=== PATIENT | female | born 1980 | race Two or more races ===

== ENCOUNTER 2016-12-20 15:40 | Emergency (ER) | payer SELFPAY ==
[2016-12-20] MEDS ORDERED: ASPIRIN 81 MG TABLET, CHEWABLE PO ONE (16:54)
--- NOTE | 2016-12-20 16:59 | ER Document Report ---
ED Medical Screen (RME) - General Chief Complaint: Chest Pain Stated Complaint: CHEST PAIN Time Seen by Provider: 12/20/16 16:54 Mode of Arrival: Ambulatory Information source: Patient Notes: 36-year-old female presents to ED for left upper chest pain with her left arm feeling sleepy and weak. She states she is not in any pain right now but her pain lasted about 2 hours and was very sharp. She states she passed out while at [facility] for a few seconds but then it took her to 10 minutes before she can stand up and walk. States she nor her cousin at [facility] know that she had passed out and was not able to get up. She states she has been under a lot of stress lately and she thinks that is why she passed out. She denies any history of blood pressure cholesterol or any heart problems. Lungs are clear respirations regular and even EKG of acute noted. Patient is alert and oriented at this time. This patient is just told me that she is a diabetic on metformin and had not eaten any breakfast this morning after she was seen here she went to the [facility] and 8 and now her blood sugars in the 200s. I have greeted and performed a rapid initial assessment of this patient. A comprehensive ED assessment and evaluation of the patient, analysis of test results and completion of medical decision making process will be conducted by an additional ED providers. TRAVEL OUTSIDE OF THE [place] IN LAST 30 DAYS: No - Related Data Allergies/Adverse Reactions: No Known Allergies Allergy (Verified 12/20/16 16:01) Past Medical History Renal/ Medical History: Denies: Hx Peritoneal Dialysis Physical Exam - Vital signs Vitals: Temp Pulse Resp BP Pulse Ox 98.6 F 103 H 22 H 145/96 H 96 12/20/16 15:59 12/20/16 15:59 12/20/16 15:59 12/20/16 15:59 12/20/16 15:59 Course - Vital Signs Vital signs: Temp Pulse Resp BP Pulse Ox 98.6 F 103 H 22 H 145/96 H 96 12/20/16 15:59 12/20/16 15:59 12/20/16 15:59 12/20/16 15:59 12/20/16 15:59
[2016-12-20 17:20] LABS: ABSOLUTE BASOPHILS # (AUTO) 0.1 10^3/uL (0.0-0.2); ABSOLUTE LYMPHOCYTES (AUTO) 2.9 10^3/uL (0.5-4.7); ABSOLUTE MONOCYTES (AUTO) 0.6 10^3/uL (0.1-1.4); ABSOLUTE NEUT (AUTO) 7.1 10^3/uL (1.7-8.2); BASOPHILS % (AUTO) 0.6 % (0-2); EOSINOPHILS % (AUTO) 0.2 % (0-6); HEMATOCRIT 36.4 % (36.0-47.0); HEMOGLOBIN 12.1 g/dL (12.0-15.5); HGB HCT DIFFERENCE -0.1; LYMPHOCYTES % (AUTO) 27.1 % (13-45); MEAN CORPUSCULAR HEMOGLOBIN 26.7 pg (27.0-33.4); MEAN CORPUSCULAR HGB CONC 33.3 g/dL (32.0-36.0); MEAN CORPUSCULAR VOLUME 80 fl (80-97); MONOCYTES % (AUTO) 5.5 % (3-13); RED BLOOD COUNT 4.54 10^6/uL (3.72-5.28); RED CELL DISTRIBUTION WIDTH 13.8 % (11.5-14.0); SEGMENTED NEUTROPHILS % (AUTO) 66.6 % (42-78); WHITE BLOOD COUNT 10.6 10^3/uL (4.0-10.5)
[2016-12-20 17:38] LABS: ALANINE AMINOTRANSFERASE 42 U/L (9-52); ALBUMIN 4.4 g/dL (3.5-5.0); ALKALINE PHOSPHATASE 97 U/L (38-126); ANION GAP 13 (5-19); ASPARTATE AMINO TRANSFERASE 25 U/L (14-36); BILIRUBIN,DIRECT 0.3 mg/dL (0.0-0.4); BILIRUBIN,TOTAL 0.5 mg/dL (0.2-1.3); BLOOD UREA NITROGEN 12 mg/dL (7-20); CALCIUM 9.9 mg/dL (8.4-10.2); CARBON DIOXIDE 24 mmol/L (22-30); CHLORIDE 101 mmol/L (98-107); CREATINE KINASE 68 U/L (30-135); CREATININE RESULT 0.61 mg/dL (0.52-1.25); GLUCOSE 237 mg/dL (75-110); MAGNESIUM 1.9 mg/dL (1.6-2.3); POTASSIUM 4.6 mmol/L (3.6-5.0); SODIUM 137.8 mmol/L (137-145); TOTAL PROTEIN 7.9 g/dL (6.3-8.2)
--- NOTE | 2016-12-20 17:39 | RADIOLOGY REPORT (SQ) ---
EXAM DESCRIPTION: CHEST PA/LAT COMPLETED DATE/TIME: 12/20/2016 5:15 pm REASON FOR STUDY: chest pain COMPARISON: None. EXAM PARAMETERS: NUMBER OF VIEWS: two views TECHNIQUE: Digital Frontal and Lateral radiographic views of the chest acquired. RADIATION DOSE: NA LIMITATIONS: none FINDINGS: LUNGS AND PLEURA: No opacities, masses or pneumothorax. No pleural effusion. MEDIASTINUM AND HILAR STRUCTURES: No masses or contour abnormalities. HEART AND VASCULAR STRUCTURES: Heart normal size. No evidence for failure. BONES: No acute findings. HARDWARE: None in the chest. OTHER: No other significant finding. IMPRESSION: NO SIGNIFICANT RADIOGRAPHIC FINDING IN THE CHEST. TECHNICAL DOCUMENTATION: JOB ID: [id number] [employer]- All Rights Reserved
[2016-12-20 17:50] LABS: CREATINE KINASE MB < 0.22 ng/mL (<4.55); TROPONIN I < 0.012 ng/mL
--- NOTE | 2016-12-20 19:47 | ER Document Report ---
ED Cardiac - General Chief Complaint: Chest Pain Stated Complaint: CHEST PAIN Time Seen by Provider: 12/20/16 16:54 Mode of Arrival: Ambulatory Information source: Patient Notes: Patient states that she was shopping around 1 PM today and developed left-sided chest pain, left arm weakness while having emotional distress. Patient states that she just found out that her spouse was cheating on her. Patient states she went to her vehicle sat down and had a syncopal episode briefly after she became more emotionally distraught. Patient states that she did not eat breakfast or lunch prior to her syncopal episode. Patient denies any nausea, vomiting, cough or cold symptoms. Patient denies any history of DVT or PE. Patient denies any recent bedrest, immobilization, travel. Patient states that her symptoms lasted for about 2 hours and then resolved. Patient currently denies any complaints. Patient states that she feels like her symptoms are likely related to her being upset over her spouse cheating on her. TRAVEL OUTSIDE OF THE [place] IN LAST 30 DAYS: No - HPI Patient complains to provider of: Chest pain Was the onset of pain: Sudden Quality of pain: Pressure Chest pain radiation location: Left arm - Left arm weakness Pain level currently: Denies Cardiac risk factors: Diabetes, Hypertension, Dyslipidemia Associated symptoms: Anxiety. denies: Abdominal pain, Back pain, Headache, Nausea/vomiting, Neck pain Exacerbated by: Denies Relieved by: Nothing Similar symptoms previously: No Recently seen / treated by doctor: No - Related Data Allergies/Adverse Reactions: No Known Allergies Allergy (Verified 12/20/16 16:01) Past Medical History - General Information source: Patient - Social History Smoking Status: Never Smoker Chew tobacco use (# tins/day): No Frequency of alcohol use: None Drug Abuse: None Occupation: none Lives with: Family Family History: CAD - Past Medical History Cardiac Medical History: Reports: Hx Hypercholesterolemia, Hx Hypertension Endocrine Medical History: Reports: Hx Diabetes Mellitus Type 2 Renal/ Medical History: Denies: Hx Peritoneal Dialysis Surgical Hx: Negative Review of Systems - Review of Systems Constitutional: No symptoms reported. denies: Fever, Recent illness EENT: No symptoms reported Cardiovascular: Chest pain, Syncope Respiratory: No symptoms reported. denies: Cough, Short of breath Gastrointestinal: No symptoms reported. denies: Abdominal pain, Nausea, Vomiting Genitourinary: No symptoms reported Female Genitourinary: No symptoms reported Musculoskeletal: No symptoms reported Skin: No symptoms reported Hematologic/Lymphatic: No symptoms reported Neurological/Psychological: No symptoms reported Physical Exam - Vital signs Vitals: Temp Pulse Resp BP Pulse Ox 98.6 F 103 H 22 H 145/96 H 96 12/20/16 15:59 12/20/16 15:59 12/20/16 15:59 12/20/16 15:59 12/20/16 15:59 - General General appearance: Appears well, Alert In distress: None - HEENT Head: Normocephalic, Atraumatic Eyes: Normal Conjunctiva: Normal Nasal: Normal Mouth/Lips: Normal Mucous membranes: Normal Neck: Normal, Supple. No: Lymphadenopathy - Respiratory Respiratory status: No respiratory distress Chest status: Nontender Breath sounds: Normal. No: Rales, Rhonchi, Stridor, Wheezing Chest palpation: Normal - Cardiovascular Rhythm: Regular Heart sounds: S1 appreciated, S2 appreciated Murmur: No - Abdominal Inspection: Normal Distension: No distension Tenderness: Nontender Organomegaly: No organomegaly - Back Back: Normal, Nontender. No: CVA tenderness - Extremities General upper extremity: Normal inspection, Normal ROM General lower extremity: Normal inspection, Normal ROM - Neurological Neuro grossly intact: Yes Cognition: Normal Selin Coma Scale Eye Opening: Spontaneous Selin Coma Scale Verbal: Oriented Colwell Coma Scale Motor: Obeys Commands Selin Coma Scale Total: 15 - Psychological Associated symptoms: Normal affect, Normal mood - Skin Skin Temperature: Warm Skin Moisture: Dry Skin Color: Normal Course - Re-evaluation Re-evalutation: 12/20/16 20:51 Patient denies any chest pain or dyspnea at this time. Patient states she is feeling much better and states that she feels that her symptoms are likely related to stress due to recently finding out that her spouse cheated on her. Consulted with Dr. Mckeon, reviewed patient's diagnostic test results, history, exam findings, and EKG. does not recommend any additional diagnostic tests at this time, agrees with discharge plan of care. The patient has atypical chest pain as the patient's chest pain is not suggestive of pulmonary embolus, cardiac ischemia, aortic dissection, or other serious etiology. Given the extremely low risk of these diagnoses for the test in evaluation for these possibilities does not appear to be indicated at this time. Patient has been instructed to return if the symptoms worsen or change in any way. Heart score 3. - Vital Signs Vital signs: Temp Pulse Resp BP Pulse Ox 97.9 F 87 18 142/85 H 97 12/20/16 21:05 12/20/16 21:05 12/20/16 21:05 12/20/16 21:05 12/20/16 21:05 - Laboratory Result Diagrams: 12/20/16 17:05 12/20/16 17:05 Laboratory results interpreted by me: 12/20/16 12/20/16 12/20/16 16:55 17:05 17:05 WBC 10.6 H MCH 26.7 L Glucose 237 H POC Glucose 238 H 12/20/16 20:49 Labs- Entire Visit 12/20/16 12/20/16 12/20/16 16:55 17:05 17:05 WBC 10.6 H RBC 4.54 Hgb 12.1 Hct 36.4 MCV 80 MCH 26.7 L MCHC 33.3 RDW 13.8 Plt Count 299 Seg Neutrophils % 66.6 Lymphocytes % 27.1 Monocytes % 5.5 Eosinophils % 0.2 Basophils % 0.6 Absolute Neutrophils 7.1 Absolute Lymphocytes 2.9 Absolute Monocytes 0.6 Absolute Eosinophils 0.0 Absolute Basophils 0.1 D-Dimer Sodium 137.8 Potassium 4.6 Chloride 101 Carbon Dioxide 24 Anion Gap 13 BUN 12 Creatinine 0.61 Est GFR ( Amer) > 60 Est GFR (Non-Af Amer) > 60 Glucose 237 H POC Glucose 238 H Calcium 9.9 Magnesium 1.9 Total Bilirubin 0.5 Direct Bilirubin 0.3 Indirect Bilirubin Not Reportable Neonat Total Bilirubin Not Reportable AST 25 ALT 42 Alkaline Phosphatase 97 Creatine Kinase 68 CK-MB (CK-2) Troponin I Total Protein 7.9 Albumin 4.4 12/20/16 12/20/16 17:05 17:05 WBC RBC Hgb Hct MCV MCH MCHC RDW Plt Count Seg Neutrophils % Lymphocytes % Monocytes % Eosinophils % Basophils % Absolute Neutrophils Absolute Lymphocytes Absolute Monocytes Absolute Eosinophils Absolute Basophils D-Dimer < 0.27 Sodium Potassium Chloride Carbon Dioxide Anion Gap BUN Creatinine Est GFR ( Amer) Est GFR (Non-Af Amer) Glucose POC Glucose Calcium Magnesium Total Bilirubin Direct Bilirubin Indirect Bilirubin Neonat Total Bilirubin AST ALT Alkaline Phosphatase Creatine Kinase CK-MB (CK-2) < 0.22 Troponin I < 0.012 Total Protein Albumin - Diagnostic Test Radiology reviewed: Reports reviewed Discharge - Discharge Clinical Impression: Hx of essential hypertension, Stress at home Chest pain Qualifiers: Chest pain type: unspecified Qualified Code(s): R07.9 - Chest pain, unspecified Condition: Stable Disposition: HOME, SELF-CARE Instructions: Chest Pain of Unclear Cause ([facility]) Additional Instructions: Return immediately for any new or worsening symptoms Followup with your primary care provider, call tomorrow to make a followup appointment You were seen today for chest pain. The exact cause of your pain is unclear. However, based on your cardiac enzyme testing, chest x-ray, and EKG it does not appear that it is from an immediately life-threatening cause at this time. Although your testing here is normal is critical that you follow-up with your primary care physician for continued evaluation of this chest pain and possible stress testing. I recommended you see your physician within the next 24-48 hours to be evaluated for consideration of a stress test. Please return to emergency department immediately if you have worsening of your chest pain, shortness of breath, vomiting, become unable to exert yourself due to pain or difficulty breathing, you pass out, or have any pain that radiates into your arms, jaw, or back. Please also return if you have any additional symptoms that are concerning to you. Referrals: [facility] [Provider Group] - Follow up tomorrow
--- NOTE | 2016-12-20 20:40 | EKG REPORT ---
SEVERITY:- BORDERLINE ECG - SINUS TACHYCARDIA BORDERLINE ST-T ABNORMALITIES, INFERIOR LEADS AND LATERAL LEADS : Confirmed by: Jorge Jones 20-Dec-2016 20:39:59
[2016-12-20 21:11] VITALS: BP 142/85
== END 2016-12-20 21:05 | disposition home or self-care (01) ==
LOC: ER 15:40
DX: R07.9 Chest pain, unspecified (principal); F43.9 Reaction to severe stress, unspecified; I10 Essential (primary) hypertension; R53.1 Weakness; R55 Syncope and collapse
CPT/HCPCS: 36415; 71020; 80053; 82550; 82553; 82962; 83735; 84484; 85025; 85379; 93005; 93010; 99285

== ENCOUNTER 2017-10-14 00:16 | Emergency (ER) | payer SELFPAY ==
--- NOTE | 2017-10-14 01:00 | ER Document Report ---
ED GI/ - General Chief Complaint: Vaginal Pain Stated Complaint: VAGINAL PAIN Time Seen by Provider: 10/14/17 00:44 Mode of Arrival: Ambulatory Information source: Patient Notes: Patient is a 36-year-old female who presents with chief complaint of itching and burning to her vaginal area is been going on for approximately 4 days. Patient reports the pain increases after she urinates. Patient states she has a chunky white discharge. Patient reports that she feels her partner has been unfaithful and she is concerned for STDs. Patient denies any fever, back pain or CVA tenderness. TRAVEL OUTSIDE OF THE [place] IN LAST 30 DAYS: No - Related Data Allergies/Adverse Reactions: No Known Allergies Allergy (Verified 12/20/16 16:01) Past Medical History - General Information source: Patient - Social History Smoking Status: Never Smoker Frequency of alcohol use: None Drug Abuse: None Lives with: Spouse/Significant other Family History: CAD - Past Medical History Cardiac Medical History: Reports: Hx Hypercholesterolemia, Hx Hypertension Endocrine Medical History: Reports: Hx Diabetes Mellitus Type 2 Renal/ Medical History: Denies: Hx Peritoneal Dialysis Review of Systems - Review of Systems Constitutional: No symptoms reported EENT: No symptoms reported Cardiovascular: No symptoms reported Respiratory: No symptoms reported Gastrointestinal: No symptoms reported Genitourinary: No symptoms reported Female Genitourinary: See HPI Musculoskeletal: No symptoms reported Skin: No symptoms reported Hematologic/Lymphatic: No symptoms reported Neurological/Psychological: No symptoms reported Physical Exam - Vital signs Vitals: Temp Pulse Resp BP Pulse Ox 98 F 82 18 152/94 H 99 10/14/17 00:25 10/14/17 00:25 10/14/17 00:25 10/14/17 00:25 10/14/17 00:25 - Notes Notes: PHYSICAL EXAMINATION: GENERAL: Well-appearing, well-nourished and in no acute distress. HEAD: Atraumatic, normocephalic. EYES: Pupils equal round and reactive to light, extraocular movements intact, conjunctiva are normal. ENT: Nares patent, oropharynx clear without exudates. Moist mucous membranes. NECK: Normal range of motion, supple without lymphadenopathy LUNGS: Breath sounds clear to auscultation bilaterally and equal. No wheezes rales or rhonchi. HEART: Regular rate and rhythm without murmurs ABDOMEN: Soft, nontender, nondistended abdomen. No guarding, no rebound. No masses appreciated. Female : deferred Musculoskeletal: Normal range of motion, no pitting or edema. No cyanosis. NEUROLOGICAL: Cranial nerves grossly intact. Normal speech, normal gait. Normal sensory, motor exams PSYCH: Normal mood, normal affect. SKIN: Warm, Dry, normal turgor, no rashes or lesions noted. Course - Re-evaluation Re-evalutation: Patient is an otherwise healthy 36-year-old female who presents with possible vaginal infection. Patient reports that she is concerned her may be unfaithful and she may have STDs. Urinalysis done and reveals small blood, large leukocytes but no nitrates. Wet mount with 3+ bacteria and yeast. Patient does not want to stay to wait for results of GC chlamydia, patient would like to be treated now. Patient will be treated prophylactically for STD and be placed on Flagyl for bacterial vaginosis as well as be treated for her urinary tract infection. - Vital Signs Vital signs: Temp Pulse Resp BP Pulse Ox 100.3 F 89 18 127/92 H 99 10/14/17 03:08 10/14/17 03:08 10/14/17 03:08 10/14/17 03:08 10/14/17 03:08 - Laboratory Laboratory results interpreted by me: 10/14/17 00:44 Urine Glucose (UA) >=500 H Urine Blood SMALL H Ur Leukocyte Esterase LARGE H Discharge - Discharge Clinical Impression: Vaginal infection Condition: Stable Disposition: HOME, SELF-CARE Additional Instructions: Vaginosis, Bacterial Your exam shows you have bacterial vaginosis. This condition is due to an overgrowth of bacteria in the vagina. Symptoms may include vaginal itching or pain, a smelly discharge, and sometimes burning with urination. Normally this is not transmitted by sexual contact. Vaginosis can be treated with oral or topical antibiotics. Metronidazole ( Flagyl) pills are usually effective. Topical vaginal creams include Cleocin and Metro-Gel. You should avoid sexual contact until your symptoms are all better. Call the doctor if you develop pelvic pain, fever, or problems with urination, or if you don't improve as expected. URINARY TRACT INFECTION: Your evaluation indicates that you have a urinary tract infection. This is due to germs growing in the bladder. This is a common problem. This infection usually responds quickly to antibiotics. Your antibiotic should be taken exactly as prescribed. Drink plenty of fluids -- three to four quarts a day. Occasionally, a bladder anesthetic will be prescribed to help stop the feeling of urgency until the antibiotic has a chance to clear the infection. This may cause your urine to be dark orange. Certain urine infections require a culture. If the doctor obtained a culture, the results will be back in two days. You should call to see if a change in treatment is needed. A repeat urinalysis after you finish treatment is often recommended. The physician will let you know if further testing is required. Call the doctor if you develop fever, chills, flank pain, inability to urinate, or blood in the urine. TRIMETHOPRIM-SULFA: You have been given a prescription for trimethoprim-sulfa (TMS, Septra, Bactrim). This is a combination antibiotic of the sulfa class, often used for urinary tract infections, middle ear infections, bronchitis, shigella intestinal infection, and Pneumocystis pneumonia. TMS is usually well-tolerated. Occasional side effects include nausea and decreased appetite. Septra is not recommended for infants less than two months of age. Do not take this medication if you have experienced severe side effects or allergy to sulfa medicine. You should stop this medicine at once and contact your physician if you develop any rash, joint pain, shortness of breath, bruising, or jaundice ( yellow color in the skin), or if you develop any other new or unusual symptoms. FOLLOW-UP CARE: If you have been referred to a physician for follow-up care, call the physician s office for an appointment as you were instructed or within the next two days. If you experience worsening or a significant change in your symptoms, notify the physician immediately or return to the Emergency Department at any time for re-evaluation. Prescriptions: Metronidazole [Flagyl 500 mg Tablet] 500 mg PO Q6H #28 tablet Sulfamethoxazole/Trimethoprim [Bactrim Ds Tablet] 1 tab PO BID #6 tablet
[2017-10-14 01:53] LABS: APPEARANCE,URINE CLOUDY; BILIRUBIN,URINE NEGATIVE (NEGATIVE); COLOR,URINE YELLOW; GLUCOSE, URINE >=500 mg/dL (NEGATIVE); KETONES,URINE NEGATIVE (NEGATIVE); LEUKOCYTE ESTERASE,URINE LARGE (NEGATIVE); NITRITE,URINE NEGATIVE (NEGATIVE); PROTEIN,URINE NEGATIVE (NEGATIVE); URINE SPECIFIC GRAVITY 1.028; UROBILINOGEN,URINE NEGATIVE mg/dL (<2.0)
[2017-10-14 02:07] LABS: BACTERIA (WET MOUNT) 3+ BACTERIA SEEN; EPITHELIALS (WET MOUNT) 3+ EPITHELIALS SEEN; RBCS (WET MOUNT) RARE RBCS SEEN; T.VAGINALIS (WET MOUNT) NO TRICHOMONAS SEEN; WBCS (WET MOUNT) FEW WBCS SEEN; YEAST (WET MOUNT) YEAST SEEN
[2017-10-14] MEDS ORDERED: LIDOCAINE 1% INJ-PF (10 MG/ML) 30 ML SDV INFIL ONE (02:09)
[2017-10-14] MEDS ORDERED: FLUCONAZOLE 100 MG TABLET PO ONE (02:09)
[2017-10-14] MEDS ORDERED: METRONIDAZOLE 500 MG TABLET PO ONE (02:09)
[2017-10-14] MEDS ORDERED: CEFTRIAXONE INJ 250 MG VIAL IM ONE (02:10)
[2017-10-14] MEDS ORDERED: AZITHROMYCIN 1 GM SUSP PACKET PO ONE (02:11)
[2017-10-14 03:06] LABS: CHLAM PCR NOT DETECTED (NOT DETECT); GON PCR NOT DETECTED (NOT DETECT)
[2017-10-14 03:12] VITALS: BP 127/92
== END 2017-10-14 03:08 | disposition home or self-care (01) ==
LOC: ER 00:16
DX: N76.0 Acute vaginitis (principal); B96.89 Other specified bacterial agents as the cause of diseases classified elsewhere; N39.0 Urinary tract infection, site not specified; I10 Essential (primary) hypertension; E11.9 Type 2 diabetes mellitus without complications; Z20.2 Contact with and (suspected) exposure to infections with a predominantly sexual mode of transmission
CPT/HCPCS: 99283; 96372; 87210; 81025; 81001; 87491; 87591; J3490; Q0144; J0696

== ENCOUNTER 2018-01-14 23:15 | Emergency (ER) | payer SELFPAY ==
--- NOTE | 2018-01-15 00:07 | ER Document Report ---
HPI - HPI Pain Level: 4 Context: Patient is a 37-year-old female that comes to the emergency department for chief complaint of possible infection of her left foot. She states that 1 week ago she had an area that looked like a blister on her foot over the dorsal aspect on the lateral side underneath her fourth and fifth digits, she states that she was seen by her primary care provider and sent to [facility], she states they saw her and placed her on Bactrim, she states that the area still has not resolved so she came in to be checked again. She is a diabetic on metformin and glimepiride. She denies fever or chills, nausea or vomiting, she denies spreading of the area but states that over the past 3 days she has noticed more pain over the area. She is unsure if she has a foreign body in her foot. Tetanus is up-to-date within 5 years. Past Medical History - General Information source: Patient - Social History Smoking Status: Never Smoker Frequency of alcohol use: None Drug Abuse: None Lives with: Family Family History: CAD - Past Medical History Cardiac Medical History: Reports: Hx Hypercholesterolemia, Hx Hypertension Endocrine Medical History: Reports: Hx Diabetes Mellitus Type 2 Renal/ Medical History: Denies: Hx Peritoneal Dialysis Surgical Hx: Negative - Immunizations Immunizations up to date: Yes Hx Diphtheria, Pertussis, Tetanus Vaccination: Yes Vertical Provider Document - CONSTITUTIONAL General Appearance: WD/WN, No Apparent Distress - INFECTION CONTROL TRAVEL OUTSIDE OF THE [place] IN LAST 30 DAYS: No - HEENT HEENT: Atraumatic, Normocephalic - NECK Neck: Normal Inspection - RESPIRATORY Respiratory: Breath Sounds Normal, No Respiratory Distress - CARDIOVASCULAR Cardiovascular: Regular Rate, Regular Rhythm - GI/ABDOMEN Gastrointestinal: Abdomen Soft, Abdomen Non-Tender - BACK Back: Normal Inspection - MUSCULOSKELETAL/EXTREMETIES Musculoskeletal/Extremeties: MAEW, FROM, Tender - Over the dorsum of the left foot underneath the MCPs of the fourth and fifth digits there is an area of what appears to be originally a blister that is healing, there is some mild surrounding erythema and minimal tenderness. No noted surrounding soft tissue swelling, patient bears weight on the area without any difficulty, normal distal neurovascular exam, normal lower extremity exam otherwise. - NEURO Level of Consciousness: Awake, Alert, Appropriate - DERM Integumentary: Warm, Dry, No Rash Course - Re-evaluation Re-evalutation: There is a very small area of healing blister and possible mild cellulitis with minimal tenderness and no significant surrounding swelling. X-ray was performed that does not show foreign body, gas, or bony abnormality. Patient is already on Bactrim, adding Keflex, traced the small area with a medical pen, advised her to be re-seen if the area spreads, if the area becomes more tender, if there is swelling, if she develops fever, or any other concerning symptoms. Patient is very agreeable with this plan, states understanding and agreement. - Vital Signs Vital signs: Temp Pulse Resp BP Pulse Ox 98.7 F 76 24 H 129/86 H 98 01/14/18 23:23 01/14/18 23:23 01/14/18 23:23 01/14/18 23:23 01/14/18 23:23 Discharge - Discharge Clinical Impression: Left foot pain Cellulitis Qualifiers: Site of cellulitis: extremity Site of cellulitis of extremity: lower extremity Laterality: left Qualified Code(s): L03.116 - Cellulitis of left lower limb Condition: Stable Disposition: HOME, SELF-CARE Additional Instructions: Your examination is consistent with a blister that has become infected with some small area of cellulitis around it. Take your antibiotic as prescribed, take the new prescribed antibiotic along with it, elevate your foot as much as possible for the next few days. Follow-up with your primary care provider. Return if this worsens including spreading redness, swelling, increased pain, fever of 100.4 or greater, or any other concerning or worsening symptoms. Prescriptions: Cephalexin Monohydrate [Keflex 500 mg Capsule] 500 mg PO QID #28 capsule
[2018-01-15] MEDS ORDERED: CEPHALEXIN 500 MG CAPSULE PO ONE (01:25)
--- NOTE | 2018-01-15 01:25 | RADIOLOGY REPORT (SQ) ---
EXAM DESCRIPTION: XR FOOT 3 OR MORE VIEWS COMPLETED DATE/TME: 01/15/2018 00:05 CLINICAL HISTORY: 37 years, Female, swelling/pain of foot; possible FB/infection COMPARISON: None. FINDINGS: 3 views of the left foot. No acute fracture or dislocation. Normal osseous mineralization. No radiopaque foreign bodies. Plantar surface soft tissue edema. IMPRESSION: 1. No acute fracture or dislocation. No radiopaque foreign body identified. 2010 [employer]- All Rights Reserved
[2018-01-15 01:38] VITALS: BP 127/97
== END 2018-01-15 01:38 | disposition home or self-care (01) ==
LOC: ER 23:15
DX: L03.116 Cellulitis of left lower limb (principal); M79.672 Pain in left foot; E11.9 Type 2 diabetes mellitus without complications; Z79.84 Long term (current) use of oral hypoglycemic drugs; I10 Essential (primary) hypertension
CPT/HCPCS: 99283

== ENCOUNTER 2018-01-16 00:03 | Emergency (ER) | payer SELFPAY ==
[2018-01-16] MEDS ORDERED: LIDOCAINE 2% VISCOUS SOLN 20 ML UDCUP PO ONE (00:39)
[2018-01-16] MEDS ORDERED: FAMOTIDINE 20 MG TABLET PO ONE (00:39)
[2018-01-16] MEDS ORDERED: MAG HYDROX/AL HYDROX/SIMETH SUSP 30 ML UDCUP PO ONE (00:39)
[2018-01-16] MEDS ORDERED: METOCLOPRAMIDE HCL ORAL SOLN 10 MG/10 ML UDCUP PO ONE (00:39)
[2018-01-16 01:00] LABS: HEMATOCRIT 38.7 % (36.0-47.0); HEMOGLOBIN 13.3 g/dL (12.0-15.5); MEAN CORPUSCULAR HEMOGLOBIN 27.1 pg (27.0-33.4); MEAN CORPUSCULAR HGB CONC 34.4 g/dL (32.0-36.0); MEAN CORPUSCULAR VOLUME 79 fl (80-97); PLATELET COUNT 349 10^3/uL (150-450); RED BLOOD COUNT 4.91 10^6/uL (3.72-5.28); RED CELL DISTRIBUTION WIDTH 14.7 % (11.5-14.0); WHITE BLOOD COUNT 15.7 10^3/uL (4.0-10.5)
--- NOTE | 2018-01-16 01:17 | RADIOLOGY REPORT (SQ) ---
EXAM DESCRIPTION: XR CHEST 1 VIEW COMPLETED DATE/TME: 01/16/2018 00:38 CLINICAL HISTORY: cp COMPARISON: 12/20/2016 FINDINGS: Single frontal view of the chest. Leads overlie the chest. The cardiomediastinal silhouette has normal size and contour. No consolidation, pneumothorax, or pleural effusion. No displaced rib fractures identified. Upper abdominal soft tissues are unremarkable. IMPRESSION: 1. No acute pulmonary process identified.
[2018-01-16 01:19] LABS: ALANINE AMINOTRANSFERASE 29 U/L (9-52); ALBUMIN 4.4 g/dL (3.5-5.0); ALKALINE PHOSPHATASE 77 U/L (38-126); ANION GAP 10 (5-19); ASPARTATE AMINO TRANSFERASE 20 U/L (14-36); BILIRUBIN,DIRECT 0.5 mg/dL (0.0-0.4); BILIRUBIN,TOTAL 0.9 mg/dL (0.2-1.3); BLOOD UREA NITROGEN 18 mg/dL (7-20); CARBON DIOXIDE 26 mmol/L (22-30); CHLORIDE 98 mmol/L (98-107); GLUCOSE 254 mg/dL (75-110); LIPASE 69.8 U/L (23-300); POTASSIUM 4.7 mmol/L (3.6-5.0); SODIUM 133.7 mmol/L (137-145)
--- NOTE | 2018-01-16 02:25 | ER Document Report ---
ED General - General Chief Complaint: Chest Pain Stated Complaint: VOMITING Time Seen by Provider: 01/16/18 00:38 Notes: Patient is a 37-year-old female without chronic medical problems who presents with several hours of burning in her chest, epigastric abdominal discomfort, nausea and vomiting. Patient states that the symptoms started after taking antibiotics today for an infection on her foot. She describes the pain to the affected areas as being a burning, aching, constant pain. Denies a history of similar symptoms in the past. She has not trying to improve her symptoms. She has not seen her general doctor regarding today's concerns. She denies any associated shortness of breath or pleuritic pain. No history of DVT or pulmonary embolus. No use of supplemental estrogen. No cardiac history. TRAVEL OUTSIDE OF THE [place] IN LAST 30 DAYS: No - Related Data Allergies/Adverse Reactions: No Known Allergies Allergy (Verified 12/20/16 16:01) Past Medical History - General Information source: Patient - Social History Smoking Status: Never Smoker Chew tobacco use (# tins/day): No Frequency of alcohol use: None Drug Abuse: None Lives with: Spouse/Significant other Family History: CAD Patient has suicidal ideation: No Patient has homicidal ideation: No - Past Medical History Cardiac Medical History: Reports: Hx Hypercholesterolemia, Hx Hypertension Endocrine Medical History: Reports: Hx Diabetes Mellitus Type 2 Renal/ Medical History: Denies: Hx Peritoneal Dialysis - Immunizations Immunizations up to date: Yes Hx Diphtheria, Pertussis, Tetanus Vaccination: Yes Review of Systems - Review of Systems Notes: Constitutional: Negative for fever. HENT: Negative for sore throat. Eyes: Negative for visual changes. Cardiovascular: Positive for chest discomfort Respiratory: Negative for shortness of breath. Gastrointestinal: Positive for abdominal pain and vomiting Genitourinary: Negative for dysuria. Musculoskeletal: Negative for back pain. Skin: Negative for rash. Neurological: Negative for headaches, weakness or numbness. 10 point ROS negative except as marked above and in HPI. Physical Exam - Vital signs Vitals: Temp Pulse Resp BP Pulse Ox 98.1 F 79 18 116/72 97 01/16/18 00:18 01/16/18 00:18 10 00:18 01/16/18 00:18 01/16/18 00:18 Interpretation: Normal Notes: PHYSICAL EXAMINATION: GENERAL: Well-appearing, well-nourished and in no acute distress. HEAD: Atraumatic, normocephalic. EYES: Pupils equal round and reactive to light, extraocular movements intact, sclera anicteric, conjunctiva are normal. ENT: nares patent, oropharynx clear without exudates. Moist mucous membranes. NECK: Normal range of motion, supple without lymphadenopathy LUNGS: Breath sounds clear to auscultation bilaterally and equal. No wheezes rales or rhonchi. HEART: Regular rate and rhythm without murmurs ABDOMEN: Soft, nontender, normoactive bowel sounds. No guarding, no rebound. No masses appreciated. EXTREMITIES: Normal range of motion, no pitting or edema. No cyanosis. NEUROLOGICAL: No focal neurological deficits. Moves all extremities spontaneously and on command. PSYCH: Normal mood, normal affect. SKIN: Warm, Dry, normal turgor, no rashes or lesions noted. Course - Re-evaluation Re-evalutation: 01/16/18 02:23 Patient presents with epigastric abdominal pain with associated reflux symptoms most consistent with likely gastritis. Patient did describe chest burning which has all since resolved. Symptoms did start after she began on cephalexin. Patient has no focal abdominal tenderness on examination. Lipase is normal. No LFT changes. Based on history and exam, I do not suspect ACS, pulmonary embolus, SBO, mesenteric ischemia, acute pancreatitis, biliary pathology, or an abdominal aortic dissection. Patient has had improvement of symptoms here with a GI cocktail. At this time will discharge with return precautions and follow-up recommendations. Verbal discharge instructions given a the bedside and opportunity for questions given. Medication warnings reviewed. Patient is in agreement with this plan and has verbalized understanding of return precautions and the need for primary care follow-up in the next 24-72 hours. - Vital Signs Vital signs: Temp Pulse Resp BP Pulse Ox 98.1 F 79 17 125/75 99 01/16/18 00:18 01/16/18 00:18 01/16/18 01:01 01/16/18 01:01 01/16/18 01:01 - Laboratory Result Diagrams: 01/16/18 00:50 01/16/18 00:50 Laboratory results interpreted by me: 01/16/18 01/16/18 00:50 00:50 WBC 15.7 H MCV 79 L RDW 14.7 H Sodium 133.7 L Glucose 254 H Direct Bilirubin 0.5 H - Diagnostic Test Radiology reviewed: Image reviewed, Reports reviewed Radiology results interpreted by me: 01/16/18 02:23 Chest x-ray: No acute infiltrate or pneumothorax - EKG Interpretation by Me Additional EKG results interpreted by me: 01/16/18 02:23 Sinus rhythm. Rate 87. No ST elevations or depressions. QTC is 457. Discharge - Discharge Clinical Impression: Reflux esophagitis, Burning chest pain Gastritis Qualifiers: Gastritis type: unspecified gastritis Chronicity: acute Gastritis bleeding: presence of bleeding unspecified Qualified Code(s): K29.00 - Acute gastritis without bleeding Condition: Good Disposition: HOME, SELF-CARE Additional Instructions: Your symptoms appear to be most consistent with stomach or upper intestinal irritation. Please begin taking famotidine 40 mg in the morning and 40 mg at night. This medicine can be purchased directly [id number]. You may also take medicine such as Pepto-Bismol or Tums to assist with your pain. Please return to emergency department immediately if you have worsening of your pain, shortness of breath, vomiting, become unable to exert yourself due to pain or difficulty breathing, you pass out, or have any pain that radiates into your arms, jaw, or back. Please also return if you have any additional symptoms that are concerning to you. As we have discussed, the most important thing is lifestyle changes. You need to avoid smoking, sodas, tea, coffee, alcohol, spicy foods, and acidic foods such as citrus fruits, tomato based products, berries, and most fruit juices. Prescriptions: Famotidine 40 mg PO BID #60 tablet Sucralfate [Carafate 1 gm Tablet] 1 gm PO ACHS #120 tablet
[2018-01-16 03:30] VITALS: BP 125/79
--- NOTE | 2018-01-16 06:51 | EKG REPORT ---
SEVERITY:- NORMAL ECG - SINUS RHYTHM : Confirmed by: Jorge Jones 16-Jan-2018 06:50:52
== END 2018-01-16 03:30 | disposition home or self-care (01) ==
LOC: ER 00:03
DX: K21.0 Gastro-esophageal reflux disease with esophagitis (principal); K29.00 Acute gastritis without bleeding; R11.2 Nausea with vomiting, unspecified; R07.9 Chest pain, unspecified; R10.13 Epigastric pain; I10 Essential (primary) hypertension; E11.9 Type 2 diabetes mellitus without complications; Z82.49 Family history of ischemic heart disease and other diseases of the circulatory system
CPT/HCPCS: 93005; 99284; 36415; 83690; 85027; 80053; 84484; 71045; 93010; J3490

== ENCOUNTER 2018-01-21 22:12 | Emergency (ER) | payer SELFPAY ==
[2018-01-21 22:38] VITALS: BP 138/88
--- NOTE | 2018-01-21 23:25 | ER Document Report ---
ED General - General Chief Complaint: Skin Sore(s) Stated Complaint: BLISTERS ON FEET Time Seen by Provider: 01/21/18 23:05 TRAVEL OUTSIDE OF THE [place] IN LAST 30 DAYS: No - HPI Patient complains to provider of: Foot pain Onset: Other - This 37-year-old type II diabetic presents for evaluation of pain on the bottom of her left foot with some associated swelling which is been there over the last week and a half, she was prescribed Keflex for this previously and has been taking it since without any improvement in her symptoms , she denies any fevers or chills, weakness, lightheadedness, chest pain shortness of breath abdominal pain diarrhea constipation or dysuria. She does note that the pain has been persistent, it has not seemed to get better despite the use of the antibiotic. - Related Data Allergies/Adverse Reactions: No Known Allergies Allergy (Verified 01/21/18 23:47) Past Medical History - General Information source: Patient - Social History Smoking Status: Never Smoker Family History: CAD - Past Medical History Cardiac Medical History: Reports: Hx Hypercholesterolemia, Hx Hypertension Endocrine Medical History: Reports: Hx Diabetes Mellitus Type 2 Renal/ Medical History: Denies: Hx Peritoneal Dialysis - Immunizations Immunizations up to date: Yes Hx Diphtheria, Pertussis, Tetanus Vaccination: Yes Review of Systems - Review of Systems -: Yes All other systems reviewed and negative Physical Exam - Vital signs Vitals: Temp Pulse Resp BP Pulse Ox 98.6 F 94 16 138/88 H 99 01/21/18 22:36 01/21/18 22:36 01/21/18 22:36 01/21/18 22:36 01/21/18 22:36 - General General appearance: Appears well In distress: None - HEENT Head: Normocephalic Eyes: Normal Conjunctiva: Normal Cornea: Normal Extraocular movements intact: Yes - Respiratory Respiratory status: No respiratory distress Chest status: Nontender Breath sounds: Normal Chest palpation: Normal - Cardiovascular Rhythm: Regular Heart sounds: Normal auscultation Murmur: No - Abdominal Inspection: Normal Distension: No distension Tenderness: Nontender - Back Back: Normal - Extremities General upper extremity: Normal inspection, Nontender, Normal strength, Normal temperature Foot: Other - blister at the base of the left foot - Neurological Neuro grossly intact: Yes Cognition: Normal Orientation: AAOx4 Mart Coma Scale Eye Opening: Spontaneous Mart Coma Scale Verbal: Oriented Mart Coma Scale Motor: Obeys Commands Mart Coma Scale Total: 15 Speech: Normal Cranial nerves: Normal Cerebellar coordination: Normal Motor strength normal: LUE, RUE, LLE, RLE - Psychological Associated symptoms: Normal affect Course - Re-evaluation Re-evalutation: 01/22/18 06:34 37 yo with a blister over the base of the foot. There is no obvious erythema, fluctuance, or purulence. Patient has what appears to be a blister, will encourage symptomatic care, will encouraged to utilize better shoes that she is wearing flat soled shoes with with a flat irritable area at the lateral aspect of the foot. Told her to stop taking the antibiotics she is currently on is an area of believe they are helping at this time. We will plan for this patient undergo discharge with return precautions and expectant management. - Vital Signs Vital signs: Temp Pulse Resp BP Pulse Ox 98.6 F 94 16 138/88 H 99 01/21/18 22:36 01/21/18 22:36 01/21/18 22:36 01/21/18 22:36 01/21/18 22:36 Discharge - Discharge Clinical Impression: Blister, Dry skin Condition: Good Disposition: HOME, SELF-CARE Instructions: Contact Dermatitis ([facility]) Additional Instructions: You were seen today in the emergency department for the swelling on the bottom of your foot as well as the dry skin on your hand. You had evaluation including a physical exam. The swelling on the bottom of your foot is a blister, it is probably because of the shoes you are wearing. You should change your shoes to a more supportive tennis shoe, wear an insole and thicker socks. The dry skin on your hand will probably respond to lotion, he should apply lotion twice a day to your hands. Return for worsening fevers or chills. Otherwise soak your feet in warm water once a day for 15 minutes. Forms: Elevated Blood Pressure
== END 2018-01-21 23:30 | disposition home or self-care (01) ==
LOC: ER 22:12
DX: R23.8 Other skin changes (principal); L85.3 Xerosis cutis; M79.672 Pain in left foot; E78.00 Pure hypercholesterolemia, unspecified; I10 Essential (primary) hypertension; E11.9 Type 2 diabetes mellitus without complications
CPT/HCPCS: 99283